=== PATIENT | female | born 1975 | race Caucasian/White ===

== ENCOUNTER → 2016-10-27 01:17 | Outpatient (CLI) | payer BC | END | disposition home or self-care (01) | LOC: D.MAMMO 01:17 | DX: Z12.31 Encounter for screening mammogram for malignant neoplasm of breast (principal) ==

== ENCOUNTER → 2017-01-04 17:23 | Outpatient (CLI) | payer BC | END | disposition home or self-care (01) | LOC: D.MAMMO 12-14 14:30 | DX: R92.8 Other abnormal and inconclusive findings on diagnostic imaging of breast (principal) ==

== ENCOUNTER → 2018-03-23 08:10 | Outpatient (CLI) | payer BC | END | disposition home or self-care (01) | LOC: D.RAD 08:10 | DX: M54.5 Low back pain (principal); S46.912A Strain of unspecified muscle, fascia and tendon at shoulder and upper arm level, left arm, initial encounter; X58.XXXA Exposure to other specified factors, initial encounter ==

== ENCOUNTER → 2018-09-06 17:08 | Outpatient (CLI) | payer BC | END | disposition home or self-care (01) | LOC: D.MAMMO 09-05 16:15 | PROVIDERS: ATTEND Family Medicine | DX: Z12.31 Encounter for screening mammogram for malignant neoplasm of breast (principal) ==

== ENCOUNTER → 2019-11-27 09:45 | Outpatient (CLI) | payer BC | END | disposition home or self-care (01) | LOC: D.MRI 09:45 | PROVIDERS: ATTEND Family Medicine | DX: M54.2 Cervicalgia (principal); M25.512 Pain in left shoulder; M54.5 Low back pain ==

== ENCOUNTER → 2020-10-27 20:26 | Outpatient (CLI) | payer BC | END | disposition home or self-care (01) | LOC: D.LABREF 20:26 | PROVIDERS: ATTEND Family Medicine | DX: Z11.7 Encounter for testing for latent tuberculosis infection (principal) ==

== ENCOUNTER → 2020-10-28 11:10 | Outpatient (CLI) | payer BC | END | disposition home or self-care (01) | LOC: D.LABREF 11:10 | PROVIDERS: ATTEND Family Medicine | DX: Z11.7 Encounter for testing for latent tuberculosis infection (principal) ==